=== PATIENT | male | born 1965 | race Caucasian/White ===

== ENCOUNTER 2021-12-29 17:23 | Emergency (ER) | payer OTHER, BC ==
[~2021-12-29] VITALS: Ht 172.7 cm; Wt 84.8 kg
[2021-12-29 18:14] VITALS: BP 155/90
[2021-12-29] MEDS ORDERED: ACET-10509 PO (18:55)
[2021-12-29] MEDS ORDERED: IBUP-1842 PO (18:55)
--- NOTE | 2021-12-29 19:45 | NUR ---
Patient discharged with v/s stable. Written and verbal after care instructions given and explained. Patient alert, oriented and verbalized understanding of instructions. Ambulatory with steady gait. All questions addressed prior to discharge. ID band removed. Patient advised to follow up with PMD. Rx of MOTRIN AND TYLENOL given. Patient educated on indication of medication including possible reaction and side effects. Opportunity to ask questions provided and answered.
== END 2021-12-29 19:45 | disposition home or self-care (01) ==
LOC: MED 17:23
DX: S16.1XXA Strain of muscle, fascia and tendon at neck level, initial encounter (principal); G44.209 Tension-type headache, unspecified, not intractable; Z88.0 Allergy status to penicillin; Z79.899 Other long term (current) drug therapy; Z98.890 Other specified postprocedural states; V43.92XA Unspecified car occupant injured in collision with other type car in traffic accident, initial encounter; Y93.89 Activity, other specified; Y92.89 Other specified places as the place of occurrence of the external cause; Y99.8 Other external cause status
CPT/HCPCS: 99282